=== PATIENT | male | born 1980 | race African-American/Black ===

== ENCOUNTER 2016-11-05 00:20 | Emergency (ER) | payer SELFPAY ==
[~2016-11-05] VITALS: Ht 193 cm; Wt 113.5 kg
[2016-11-05 00:23] VITALS: TEMP 36.5; Ht 193 cm; Wt 113.5 kg
--- NOTE | 2016-11-05 00:41 | EMERGENCY ROOM VISIT NOTE ---
History Report prepared by Lidaibmamta: Maye Matias Under the Supervision of: Dr. Renata Osborne D.O. First contact with patient: 00:28 Chief Complaint: SHOULDER DISLOCATION Stated Complaint: POSSIBLE RIGHT SHOULDER SEPARTATION History of Present Illness The patient is a 36 year old male who presents to the Emergency Room with complaints of constant right shoulder dislocation occurring just prior to arrival. The patient states that he was outside throwing a football when he reached back to catch the ball and his shoulder dislocated. He has dislocated his shoulder 2 other previous times with the last being 2 years ago. The patient denies falling. He denies any other symptoms at this time. Source of History: patient Onset: just TRADER Position: shoulder (right) Quality: other (dislocation) Timing: constant Note: The patient denies any other symptoms at this time. Review of Systems See HPI for pertinent positives & negatives. A total of 10 systems reviewed and were otherwise negative. Past Medical & Surgical Medical Problems: (1) Shoulder dislocation Family History Patient reports no known family medical history. Social History Smoking Status: Current Every Day Smoker Housing Status: lives with friends Occupation Status: employed Current/Historical Medications No Active Prescriptions or Reported Meds Allergies Coded Allergies: No Known Allergies (Unverified , 11/05/16) Physical Exam Vital Signs Date Time Temp Pulse Resp B/P Pulse Ox O2 Delivery O2 Flow Rate FiO2 11/05/16 01:13 72 18 155/88 99 11/05/16 00:23 36.5 80 18 162/100 98 Room Air Physical Exam Heart: Regular rate and rhythm. There is a normal S1 and S2 with no murmurs, clicks, or gallops appreciated. Lungs: Clear to auscultation bilaterally with no wheezes, rales, or rhonchi. Abdomen: Soft, completely nontender, nondistended, with good bowel sounds. There are no palpable pulsatile masses or hepatosplenomegaly. There is no guarding, rigidity, or rebound noted. Extremities: Obvious anterior dislocation of right shoulder, normal sensation of deltoid, easily palpable radial pulse, good sensation of hand. No evidence of cyanosis, clubbing, or edema. There are easily palpable peripheral pulses. Skin: warm and dry with good turgor and no rashes. Medical Decision & Procedures ER Provider Diagnostic Interpretation: X-ray results as stated below per interpretation by me: Shoulder Post Reduction: Appears to be reduced, no obvious fracture. Medications Administered Medications (Trade) Dose Ordered Sig/[facility] Route Start Time Stop Time Status Last Admin Dose Admin Ketorolac Tromethamine (Toradol Inj) 60 mg NOW STAT IM 11/05/16 00:44 11/05/16 00:45 DC 11/05/16 01:02 60 MG Procedure Shoulder reduction: The patient was placed in the prone position. I did perform a modified Ad technique and was able to reduce this shoulder dislocation. ED Course 0035: Past medical records reviewed. The patient was evaluated in room B2. A complete history and physical exam was performed. 0040: Modified Ad technique was used to reduce shoulder. Post reduction, the patient had normal sensation of deltoid, good radial pulse, good sensation of hand. He was put into a shoulder immobilizer. The patient went for a post reduction film. Toradol Inj 60 mg IM. 0109: Upon reevaluation, hemodynamically stable. I discussed findings and results with him. He verbalized agreement of the treatment plan. He was discharged home. Medical Decision The patient is a 36 year old male who presents to the ED with shoulder dislocation. Differential diagnosis includes dislocation, shoulder separation, fracture. This is a 36 male patient presents emergency Department with a dislocation of his right shoulder. He has dislocated on 2 previous occasions. The shoulder was reduced and he was placed in a shoulder immobilizer. He has good sensation in his hand and good movement of the elbow and wrist. The patient has no orthopedic surgeon. I have referred him to [facility] as they are [facility]. Impression Primary Impression: Dislocation of right shoulder joint Scribe Attestation The scribe's documentation has been prepared under my direction and personally reviewed by me in its entirety. I confirm that the note above accurately reflects all work, treatment, procedures, and medical decision making performed by me. Departure Information Dispostion Home / Self-Care Prescriptions No Active Prescriptions or Reported Meds Referrals No Doctor, Assigned (PCP) Forms HOME CARE DOCUMENTATION FORM, IMPORTANT VISIT INFORMATION, WORK / SCHOOL INSTRUCTIONS Patient Instructions ED Dislocation Shoulder Redu, My [facility] Additional Instructions Rest Ibuprofen- 800mg every8 hours with food for pain Weear your shouldwer immobilizer when up and about. Follow up with Ortho.
[2016-11-05] MEDS ORDERED: KETOROLAC TROMETHAMINE 60 MG/2 ML VIAL IM STA (00:44)
[2016-11-05 01:13] VITALS: BP 155/88; PULSE 72; O2SAT 99
--- NOTE | 2016-11-05 06:45 | DIAGNOSTIC IMAGING REPORT ---
RIGHT SHOULDER MIN 2 VIEWS ROUTINE CLINICAL HISTORY: Right shoulder pain. History of dislocation. COMPARISON: None. 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 There is no dislocation. There are moderate arthritic changes within the glenohumeral joint. 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 IMPRESSION: 1. No evidence of dislocation 2. Moderate arthritic changes 3. 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 11/05/2016 6:44 AM Dictated Date/Time: 11/05/2016 6:42 AM
== END 2016-11-05 01:13 | disposition home or self-care (01) ==
LOC: C.EDB 00:22
DX: S43.004A Unspecified dislocation of right shoulder joint, initial encounter (principal); X50.0XXA Overexertion from strenuous movement or load, initial encounter; Y93.61 Activity, american tackle football; F17.210 Nicotine dependence, cigarettes, uncomplicated